=== PATIENT | male | born 1965 | race Hispanic/Latino ===

== ENCOUNTER 2020-08-06 13:58 | Emergency (ER) | payer OTHER, SELFPAY ==
[2020-08-06] MEDS ORDERED: Morphine 4 MG/ML VIAL ONE (14:08)
[2020-08-06] MEDS ORDERED: Morphine 2 MG/ML SYRINGE ONE (14:09)
--- NOTE | 2020-08-06 14:27 | RAD ---
Left ankle 3 views: 08/06/2020 COMPARISON: None HISTORY: Injury, trauma, pain FINDINGS: There is minimal enthesophyte formation at the insertion of the Achilles tendon and moderat e enthesophyte formation at the origin of the plantar aponeurosis. Anterior soft tissue swelling is noted at the level of the left ankle joint. There is mild dorsal degenerative change with associated osteophyte formation. No displaced fracture or dislocation. Talar dome and ankle mortise appear intact. IMPRESSION: No displaced fracture or dislocation seen.
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
== END 2020-08-06 15:10 | disposition home or self-care (01) ==
LOC: MADERS 13:58
DX: S82.455A Nondisplaced comminuted fracture of shaft of left fibula, initial encounter for closed fracture (principal); E11.9 Type 2 diabetes mellitus without complications; V09.9XXA Pedestrian injured in unspecified transport accident, initial encounter
CPT/HCPCS: 96372; J2270